=== PATIENT | female | born 1995 | race Caucasian/White ===

== ENCOUNTER 2016-12-05 17:18 | Emergency (ER) | payer OTHER ==
[~2016-12-05] VITALS: Ht 167.6 cm; Wt 86.2 kg
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
== END 2016-12-05 18:33 | disposition home or self-care (01) ==
LOC: ER 17:18
DX: S39.011A Strain of muscle, fascia and tendon of abdomen, initial encounter (principal); W18.49XA Other slipping, tripping and stumbling without falling, initial encounter; Y93.89 Activity, other specified; Y92.89 Other specified places as the place of occurrence of the external cause; Y99.8 Other external cause status
CPT/HCPCS: 99281

== ENCOUNTER 2017-12-30 16:17 | Emergency (ER) | payer BC, OTHER ==
[2017-12-30 17:41] LABS: ADD MAN DIFF? NO
[2017-12-30 17:43] LABS: BASO % 0 % (0-3); EOS # 0.1 x10^3/uL (0.0-0.7); EOS % 1 % (0-3); LYMPH # 2.3 x10^3/uL (1.0-4.8); LYMPH % 30 % (24-48); MEAN CORPUSCULAR HEMOGLOBIN 30 pg (25-35); MEAN CORPUSCULAR HGB CONC 34 g/dL (31-37); MEAN CORPUSCULAR VOLUME 88 fL (79-100); MONO # 0.5 x10^3/uL (0.0-1.1); MONO % 6 % (0-9); NEUT # 4.6 x10^3uL (1.8-7.7); NEUT % 62 % (31-73); PLATELET COUNT 283 x10^3/uL (140-400); RED BLOOD COUNT 4.31 x10^6/uL (3.50-5.40); RED CELL DISTRIBUTION WIDTH 13.2 % (11.5-14.5); WHITE BLOOD COUNT 7.5 x10^3/uL (4.0-11.0)
[2017-12-30 17:49] LABS: AGAP ISTAT 15 mmol/L (6-14); BUN ISTAT 7 mg/dL (8-26); CHLORIDE ISTAT 105 mmol/L (98-110); CREATININE ISTAT 0.9 mg/dL (0.5-1.4); GLUCOSE ISTAT 95 mg/dL (70-99); HEMATOCRIT ISTAT 38 % (36-40); HEMOGLOBIN ISTAT 12.9 g/dL (12-15); ION CA ISTAT 1.07 mmol/L (1.13-1.32); POTASSIUM ISTAT 4.1 mmol/L (3.5-5.0); SODIUM ISTAT 140 mmol/L (135-145); TOT CO2 ISTAT 25 mmol/L (23-32)
[2017-12-30 17:56] LABS: ANION GAP 10 (6-14); BLOOD UREA NITROGEN 8 mg/dL (7-20); CALCIUM 9.1 mg/dL (8.5-10.1); CARBON DIOXIDE 25 mmol/L (21-32); CHLORIDE 105 mmol/L (98-107); GFR 68.7; GLUCOSE 98 mg/dL (70-99); POTASSIUM 4.3 mmol/L (3.5-5.1); SODIUM 140 mmol/L (136-145)
[2017-12-30 17:57] LABS: D-DIMER < 0.27 ug/mlFEU (0.00-0.50)
[2017-12-30] MEDS ORDERED: ALBUTEROL SULFATE 2.5 MG/3 ML NEBU. NEB (18:00)
[2017-12-30 18:18] LABS: TROPONINI < 0.017 ng/mL (0.000-0.055)
[2017-12-30] MEDS: fentaNYL PF VIAL 100 MCG/2 ML VIAL IV (18:30)
== END 2017-12-30 18:49 | disposition home or self-care (01) ==
LOC: ER 16:17
DX: R07.89 Other chest pain (principal); F41.9 Anxiety disorder, unspecified; J45.909 Unspecified asthma, uncomplicated; I10 Essential (primary) hypertension
CPT/HCPCS: 36415; 71046; 80047; 80048; 84484; 85025; 85379; 93005; 99285-25

== ENCOUNTER → 2019-03-08 | Outpatient (CLI) | payer BC ==
[2017-12-30 18:44] VITALS: BP 125/80
--- NOTE | 2019-03-08 10:31 | KCIC ---
2 views calcaneus dated 03/08/2019. No comparison available. CLINICAL INDICATION: Chronic right heel pain. No known injury. FINDINGS: 2 views right calcaneus show normal bony alignment. No displaced fracture. No periostitis or bone destruction. IMPRESSION: No acute radiographic abnormality. Electronically signed by: Kiet Sigala MD (03/08/2019 10:28 AM) [id number]
== END | disposition home or self-care (01) ==
LOC: KCIC 10:06
PROVIDERS: ATTEND Nurse Practitioner Family
DX: M79.671 Pain in right foot (principal); G89.29 Other chronic pain
CPT/HCPCS: 73650

== ENCOUNTER → 2019-04-19 | Outpatient (CLI) | payer BC ==
[2017-12-30 18:44] VITALS: BP 125/80
--- NOTE | 2019-04-19 17:03 | KCIC ---
CHEST PA LATERAL Clinical indications: Worsening asthma. Night sweats. Sternal chest pain for one month. Cough. COMPARISON: December 30, 2017. Findings: No acute lung infiltrate or pleural effusion or pulmonary edema or lung mass or pneumothorax is seen. The heart size, pulmonary vasculature, mediastinum and both lee are unremarkable. The osseous structures appear intact. Impression: No acute radiographic abnormality is seen. Electronically signed by: Gabe Delgado MD (04/19/2019 5:01 PM) [place] [id number]
== END | disposition home or self-care (01) ==
LOC: KCIC 10:43
PROVIDERS: ATTEND Nurse Practitioner Family
DX: J45.909 Unspecified asthma, uncomplicated (principal); R61 Generalized hyperhidrosis
CPT/HCPCS: 71046

== ENCOUNTER → 2019-06-14 | Outpatient (CLI) | payer BC ==
[2017-12-30 18:44] VITALS: BP 125/80
[~2019-06-14] MED LIST: CONTRAST GIVEN. MC PRN; IOHEXOL 350 MG/ML 100 ML VIAL. IV ONE
--- NOTE | 2019-06-14 15:15 | RAD ---
CT ANGIOGRAPHY CHEST INDICATION: Chest pain Comparison: Chest radiograph 04/19/2019. TECHNIQUE: Following the uneventful administration of intravenous contrast, 100 mL Omnipaque 350, axial CT sections were obtained through the lungs and upper abdomen. MIP images and were also obtained. PQRS compliance statement: One or more of the following individualized dose reduction techniques were utilized for this examination: 1. Automated exposure control 2. Adjustment of the mA and/or kV according to patient size 3. Use of iterative reconstruction technique FINDINGS: Pulmonary vasculature: No evidence of pulmonary thromboembolic disease Lungs and Airways: No pulmonary mass or consolidation. No abnormality of the central airways. Pleura: The pleural spaces are normal. Heart and Mediastinum: The visualized thyroid is normal in size and attenuation. No axillary or supraclavicular lymphadenopathy. No mediastinal, hilar or retrocrural lymphadenopathy. The heart and pericardium are within normal limits. The great vessels of the thorax are normal. Abdomen: Hepatomegaly and diffuse hepatic steatosis. Bones and Soft Tissues: The visualized bones and chest wall soft tissues are within normal limits. IMPRESSION: 1. No evidence of pulmonary thromboembolic disease. 2. No pulmonary mass or consolidation. No thoracic lymphadenopathy. 3. Hepatomegaly and diffuse hepatic steatosis. Electronically signed by: Giovany Olivera MD (06/14/2019 3:12 PM) [id number]
== END | disposition home or self-care (01) ==
LOC: CT 13:59
PROVIDERS: ATTEND Internal Medicine Pulmonary Disease
DX: K76.0 Fatty (change of) liver, not elsewhere classified (principal); R16.0 Hepatomegaly, not elsewhere classified; I10 Essential (primary) hypertension; J45.909 Unspecified asthma, uncomplicated
CPT/HCPCS: 71275; Q9967